=== PATIENT | female | born 2000 | race Caucasian/White ===

== ENCOUNTER 2023-08-18 16:15 | Emergency (ER) | payer MEDICAID, OTHER ==
[~2023-08-18] VITALS: Ht 162.6 cm; Wt 59.0 kg
[2023-08-18 16:24] VITALS: BP 128/90; PULSE 120; RESP 20; O2SAT 98
== END 2023-08-18 22:29 | disposition left against medical advice (07) ==
LOC: EDBD 16:15 → ER 16:15
DX: R11.2 Nausea with vomiting, unspecified (principal); Z53.21 Procedure and treatment not carried out due to patient leaving prior to being seen by health care provider